=== PATIENT | male | born 1945 | race Caucasian/White ===

== ENCOUNTER 2017-07-22 13:59 | Emergency (ER) | payer OTHER ==
[~2017-07-22] VITALS: Ht 175.3 cm; Wt 81.7 kg
[~2017-07-22 13:59] MED LIST: ACTOS 45 MG45 M1 PO; ASPIR 8181 MG PO; ASPIRIN81 M2 PO; AZITHROMYCIN 2250 MG PO; CENTRUM SILVER1 EAC4 PO; COLACE100 MG PO; COZAAR 50 MG TA50 M2 PO; FISH OIL 1,001000 M2 PO; FLEXERIL PO; GLUCOPHAGE500 MG PO; LEVAQUIN 500 M500 M2 PO; LIPITOR40 MG PO; LISINOPRIL10 MG PO; LOPRESSOR50 PO; NAPROSYN500 MG PO; NEXIUM40 MG PO; NITROGLYCERIN0.4 MG SUBLING; NORCO 10-325 T1 EACH PO; PLAVIX 75 MG TA75 M1 PO; SIMVASTATIN40 MG PO; VENTOLIN HFA 1818 GM INH
[2017-07-22 15:11] VITALS: BP 116/66
== END 2017-07-22 15:12 | disposition home or self-care (01) ==
LOC: M.ERS 13:59
DX: S02.2XXA Fracture of nasal bones, initial encounter for closed fracture (principal); E78.5 Hyperlipidemia, unspecified; I10 Essential (primary) hypertension; E11.9 Type 2 diabetes mellitus without complications; W22.8XXA Striking against or struck by other objects, initial encounter; Y93.89 Activity, other specified; Y92.89 Other specified places as the place of occurrence of the external cause; Y99.8 Other external cause status

== ENCOUNTER → 2018-12-15 | Outpatient (CLI) | payer OTHER ==
--- NOTE | 2018-12-15 19:39 | CARDNUC ---
[place] [address] CARDIAC NUCLEAR IMAGING REPORT Name: BLAISE HERNÁNDEZ Room: [facility]#: [id number] Admission: 12/15/18 Attend Phys: Elkin Hall, Discharge: Date of : 41 Date of Service: 12/15/181938 Report #: [id number] THIS REPORT FOR: //name// APPROVED REPORT Imaging Protocol: Rest Tc-99m/Stress Tc-99m 1 day Study performed: 12/15/2018 09:23:44 Indication: Dyspnea Patient Location: Out-Patient Stress Tech: Nancy Palma Stress Nurse: Lily Mckeon RN NM Tech:RHONDA Guerra Ht: 5 ft 8 in Wt: 175 lbs BSA: 1.93 m2 BMI: 26.60 Medical History Medications: metoprolol, atorvastatin, losartan, clopidogrel, metformin Allergies: NKDA Cardiac Risk Factors: age, HLP, HTN, DM Previous Cardiac Procedures: Diagnostic cath Meds Held (24 hrs): beta todd Resting Data Rest SPECT myocardial perfusion imaging was performed in supine position 30 minutes following the intravenous injection of 11.1 mCi of Tc-99m Sestamibi. Time of rest injection: 0800 Date: 12/15/2018 The images were gated to evaluate regional wall motion and calculate left ventricular ejection fraction. Administration Route: IV Administration Site: Right Arm Pharmacologic Stress Pharmacologic stress test was performed by injecting Regadenoson 0.4 mg IV push over 10-15 seconds immediately followed by the intravenous injection of 33.9 mCi of Tc-99m Sestamibi. Time of stress injection: 919 Date: 12/15/2018 Administration Route: IV Administration Site: Right Arm Gated Stress SPECT was performed 40 minutes after stress injection. The images were gated to evaluate regional wall [place] [address] CARDIAC NUCLEAR IMAGING REPORT Name: BLAISE HERNÁNDEZ Room: [facility] NELI Gonzalez#: [id number] Admission: 12/15/18 Attend Phys: Elkin Hall, Discharge: Date of : 41 Date of Service: 12/15/18 193 Report #: [id number] left ventricular ejection fraction. Prone imaging was performed. Stress Test Details Stress Test: Pharmacologic stress testing performed using 0.4 mg of regadenoson per 5 mL given IV over 10 seconds. HR Max Heart Rate (APMHR): 145 bpm Resting HR: 78 bpm Target HR (85% APMHR): 123 bpm Max HR Achieved: 117 bpm % of APMHR: 80 Recovery HR: 99 bpm BP Resting BP: 158/90 mmHg Max BP: 123/68 mmHg Recovery BP: 123/62 mmHg ECG Resting ECG: Sinus Rhythm Stress ECG: Sinus Tachycardia ST Change: None Arrhythmia: None Recovery ECG: Sinus Rhythm Recovery ST Change: None Recovery Arrhythmia: None Clinical Reason for Termination: Completed protocol Stress Symptoms: none The patient tolerated Lexiscan infusion without significant cardiac symptoms. Stress ECG Conclusion The baseline 12-lead EKG shows sinus rhythm without significant ST or T wave abnormality. EKGs obtained during and post Dari infusion show sinus rhythm and sinus tachycardia with no significant ST or T wave changes when compared to baseline. There were no significant stress-induced arrhythmias. Study Quality Study: Good Artifact: No artifact Study Data At rest, the left ventricular ejection fraction was 69%.. Post stress, the left ventricular ejection was 67%.. [place] [address] CARDIAC NUCLEAR IMAGING REPORT Name: BLAISE HERNÁNDEZ [place] Room: [facility]#: [id number] Admission: 12/15/18 Attend Phys: Elkin Hall, Discharge: Date of : 41 Date of Service: 12/15/18 1939 Report #: [id number] TID = 0.97. Perfusion Perfusion images show a moderate sized mild to moderate intensity reversible defect involving the mid to distal anterior wall. No other significant fixed or reversible defects were identified. Wall Motion Gated images are not technically sufficient to evaluate wall motion. Nuclear Conclusion ECG Findings: negative for ischemia Clinical Findings: negative for ischemia Nuclear Findings: positive for ischemia Exercise Capacity: not assessed Left Ventricular Function: study limited There is evidence of ischemia involving the mid to distal anterior wall on perfusion images. Global LV systolic function appears preserved. This is a high risk study based on anterior wall ischemia. <Conclusion> The baseline 12-lead EKG shows sinus rhythm without significant ST or T wave abnormality. EKGs obtained during and post Dari infusion show sinus rhythm and sinus tachycardia with no significant ST or T wave changes when compared to baseline. There were no significant stress-induced arrhythmias. <ELECTRONICALLY SIGNED> By: Elkin Hall MD, FACC 12/15/181938 38 38 Elkin Hall MD, FACC /INF
== END ==
LOC: M.NUC 11-21 12:19
DX: I25.10 Atherosclerotic heart disease of native coronary artery without angina pectoris (principal); Z79.899 Other long term (current) drug therapy

== ENCOUNTER 2018-12-27 09:01 | Observation (INO) | payer OTHER ==
[~2018-12-27] VITALS: Ht 172.7 cm; Wt 81.7 kg
[2018-12-27] VITALS (10 sets, daily range): BP systolic 91–160; BP diastolic 43–88
[~2018-12-27 09:01] MED LIST changes: +COZAAR 50 MG TA50 M1 PO; -COZAAR 50 MG TA50 M2 PO
[2018-12-27 10:02] LABS: HEMATOCRIT 36.2 % (42.0-52.0); HEMOGLOBIN 12.2 gm/dL (14.0-18.0); MCH 32.5 pg (26.0-34.0); MCHC 33.5 g/dL (28.0-37.0); MCV 96.8 fL (80.0-100.0); MPV 9.4 fl. (7.2-11.1); RBC 3.74 mil/uL (4.50-6.00); RDW-CV 13.5 % (10.5-14.5); WBC 7.1 thou/uL (4.0-11.0)
[2018-12-27 10:12] LABS: ANION GAP 11 mmol/L (7-16); BUN 34 mg/dL (7-18); CALCIUM 9.3 mg/dL (8.5-10.1); CHLORIDE 102 mmol/L (98-107); CO2 26 mmol/L (21-32); CREATININE 1.5 mg/dL (0.6-1.3); GLUCOSE 184 mg/dL (70-99); POTASSIUM 4.3 mmol/L (3.5-5.1); SODIUM 139 mmol/L (136-145)
[2018-12-27 10:13] LABS: PROTIME 10.7 Seconds (9.20-11.50)
[2018-12-27 10:16] LABS: ALKALINE PHOSPHATASE 96 U/L (46-116); CHOLESTEROL 115 mg/dL (<200); HDL CHOLESTEROL 33 mg/dL (>40); LDL CHOLESTEROL 71 mg/dL (<100); SGOT 19 U/L (15-37); SGPT 31 U/L (30-65); TC:HDL 3.5 Ratio (Not establshd); TOTAL BILIRUBIN 0.4 mg/dL (<0.1-1.0); TOTAL PROTEIN 7.8 g/dL (6.4-8.2); TRIGLYCERIDE 55 mg/dL (<150); VLDL 11 mg/dL (<40)
[2018-12-27 10:18] LABS: SERUM ASSESSMENT Clear
--- NOTE | 2018-12-27 15:04 | EKG ---
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: RT : 1945 Requested By: Elkin Hall Order Number: [id number] Yojana MD: Elkin Hall Measurements Intervals [place] Rate: 67 P: 7 VT: 125 QRS: 101 QRSD: 134 T: 34 QT: 380 QTc: 401 Interpretive Statements Sinus rhythm Nonspecific intraventricular conduction delay, atypical right bundle-branch block Compared to ECG 09/30/2015 15:15:02 Sinus tachycardia no longer present Electronically Signed On 12-27-2018 15:04:34 CDT by Elkin Hall [email or web address] <ELECTRONICALLY SIGNED> By: Elkin Hall MD, [facility] 12/27/18 1504 1020 1020 Elkin Hall MD, [facility] /EPI
--- NOTE | 2018-12-27 15:08 | EKG ---
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: : 1945 Requested By: Elkin Hall Order Number: [id number] Yojana MD: Elkin Hall Measurements Intervals [place] Rate: 66 P: 15 DE: 122 QRS: 94 QRSD: 139 T: 27 QT: 400 QTc: 420 Interpretive Statements Sinus rhythm Nonspecific intraventricular conduction delay, atypical right bundle-branch block Compared to ECG 09/30/2015 15:15:02 Sinus tachycardia no longer present Electronically Signed On 12-27-2018 15:07:58 CDT by Elkin Hall [email or web address] <ELECTRONICALLY SIGNED> By: Elkin Hall MD, [facility] 12/27/18 1507 1352 1352 Elkin Hall MD, FAC /EPI
[2018-12-27 16:02] LABS: CK-MB MASS 0.8 ng/mL (<0.5-3.6); TROPONIN-I LEVEL <0.06 ng/mL (<0.06)
--- NOTE | 2018-12-27 17:00 | NUR ---
INVAS TECH ADMIT TO 209 TELEPHONE REPORT GIVEN PRIOR TO ARRIVAL ARRIVED IN BED ORIENTED TO AND CALL LIGHT DENIES PAIN R GROIN SITE C/D/I, NO HEMATOMA
[2018-12-27] MEDS ORDERED: PLAVIX 75 MG TA75 M1 PO (17:29)
[2018-12-28 04:40] VITALS: BP 112/56
--- NOTE | 2018-12-28 06:08 | NUR ---
PATIENT SLEPT MOST OF THE NIGHT. IV FLUIDS WERE GIVEN ORDERED. DRESSING TO RIGHT GROIN CATH SITE REMAINS C/D/I NO BRUISING OR HEMATOMA NOTED. PATIENT IS POSSIBLY GOING HOME TODAY. WILL CONTINUE TO MONITOR.
--- NOTE | 2018-12-28 07:05 | NUR ---
CHANGE OF SHIFT, BEDSIDE REPORT GIVEN' PATIENT SEEN AT BEDSIDE, IN BED ASLEEP ASSUMED PATIENT CARE
[2018-12-28 08:00] VITALS: BP 113/58
[2018-12-28 08:11] LABS: HEMATOCRIT 31.6 % (42.0-52.0); MCH 33.4 pg (26.0-34.0); MCHC 34.7 g/dL (28.0-37.0); MCV 96.1 fL (80.0-100.0); RBC 3.29 mil/uL (4.50-6.00); RDW-CV 13.3 % (10.5-14.5); WBC 6.4 thou/uL (4.0-11.0)
[2018-12-28 08:34] LABS: ALBUMIN 3.3 g/dL (3.4-5.0); ALKALINE PHOSPHATASE 90 U/L (46-116); ANION GAP 11 mmol/L (7-16); BUN 23 mg/dL (7-18); CALCIUM 8.8 mg/dL (8.5-10.1); CHLORIDE 105 mmol/L (98-107); CK-MB MASS 0.6 ng/mL (<0.5-3.6); CO2 22 mmol/L (21-32); CREATININE 1.3 mg/dL (0.6-1.3); GLUCOSE 128 mg/dL (70-99); POTASSIUM 4.3 mmol/L (3.5-5.1); SGOT 17 U/L (15-37); SGPT 29 U/L (30-65); SODIUM 138 mmol/L (136-145); TOTAL BILIRUBIN 0.3 mg/dL (<0.1-1.0); TOTAL PROTEIN 6.4 g/dL (6.4-8.2); TROPONIN-I LEVEL <0.06 ng/mL (<0.06)
[2018-12-28] MEDS ORDERED: ASPIRIN325 PO (09:27)
[2018-12-28] MEDS ORDERED: EFFIENT10 MG PO (09:27)
[2018-12-28] MEDS ORDERED: PHENAZOPYRIDIN100 M1 PO (09:27)
--- NOTE | 2018-12-28 09:34 | CARD ---
[address] [address] CARDIAC CATH REPORT Name: BLAISE HERNÁNDEZ Room: [address] M.RJanelle#: [id number] Admission: 12/27/18 Attend Phys: Elkin Hall MD Discharge: Date of : 41 Report #: [id number] THIS REPORT FOR: //name// APPROVED REPORT Study performed: 12/27/2018 09:46:57 Patient Details Patient Status: In-Patient Room #: The patient is a 73 year-old male Event Personnel Elkin Hall Television Station Manager, Fadia Ingram RN Block Operator, Genoveva Hilton RN Block Operator, August Barrera (R) Scrub, , Anne Munguia Monitor, Cele Bowers RTR Monitor, Andrea Bullock DATA COLLECTION TECHNICIAN Monitor, Antione Kemp Speech Language Pathologist Travel Procedures Performed Art Access - R femoral artery* Left Heart Cath w/or w/o Coronaries [id number] [facility] w/wo Plasty Single LAD [id number] Indication Positive stress test, Chest pain Admission/Lab Medications/Medications given during procedure Lidocaine Subcut 10 ml, Midazolam (Versed) IV 1 mg, Fentanyl IV 25 mcg, Angiomax IV Bolus 12 ml, Angiomax Drip IV 27.82 ml per hr, Aspirin PO 81 mg, Effient PO 60 mg Procedure Narrative A 6fr Ultimum Sheath sheath was inserted into the right femoral artery. Coronary angiography was performed using coronary diagnostic catheters. The right coronary system was accessed and visualized with a 6F JR4 catheter. The left coronary system was accessed and visualized with a 6F JL4 catheter. The left ventricle was accessed and visualized with a 6F Pigtail catheter. Closure device was deployed with a 6 Fr Angioseal STS 6Fr. The patient tolerated the procedure well and there were no complications associated with the procedure. Intraoperative Conscious Sedation Sedation start time: 12:15 Case end Time: 13:132 [place] [address] CARDIAC CATH REPORT Name: EDGARBLAISE BARKSDALE Room: [address] M.R.#: [id number] Admission: 12/27/18 Attend Phys: Elkin Hall MD Discharge: Date of : 41 Report #: [id number] Fentanyl 25 mcg Versed 1 mg Fluoro Time: 15.4 minutes Dose: DAP 960381 cGycm2 3146 mGy Contrast Type and Amount: Visipaque 450 ml Coronary Angiography The patient's coronary anatomy is right dominant. Diagnostic Cath Left Main Normal. The vessel bifurcates into a left anterior descending and circumflex was coronary artery. LAD High-grade calcified eccentric plaque very proximally with 90% narrowing. 20% narrowing in the mid and distal portions. Diagonal 1 Large vessel with very high takeoff. Free of significant disease. Circumflex 10% plaquing proximally. There is a 70% narrowing in the mid vessel after the takeoff of a first obtuse marginal branch. OM1 Normal. OM2 Normal. Right Coronary 50% narrowing with an eccentric lesion in the mid vessel and 50% narrowing with eccentric lesion in the distal vessel. R PDA Normal. RPLV Normal. Left Ventriculography Left Ventriculography was not performed. Hemodynamics The aortic pressure is 120/58 mmHg with a mean of 80 mmHg. The left ventricular pressure is 110/5 mmHg with a mean of mmHg. The left ventricular end diastolic pressure is 13 mmHg. PCI Technique Lesion Anticoagulation was achieved with Angiomax. Patient was preloaded with Angiomax IV 12 ml. Percutaneous coronary intervention was performed on the proximal left anterior descending artery segment. A 6F XB LAD 3.5 Guide Catheter was used to engage the LMCA ostium. A BMW 190cm Interventional Guidewire was used to cross the lesion. BALLOON DILATION A Balloon catheter Trek RX 2.5 X 8 was inserted and inflated up to 14.00atm for 12seconds. Additional Inflation: 18.00atm for 9seconds. [place] [address] CARDIAC CATH REPORT Name: BLAISE HERNÁNDEZ Room: [address] Tr[place] M.R.#: [id number] Admission: 12/27/18 Attend Phys: Elkin Hall MD Discharge: Date of : 41 Report #: [id number] A 2nd Balloon catheter NC Trek 2.75 x 8 was inserted and inflated to 18 layne for 14 seconds. Reinflated to 22 layne, 12 seconds. STENT DEPLOYMENT A drug-eluting stent Xience Patricia 2.75X8mm was inserted and inflated up to 16.00atm for 13seconds. Additional Inflation: 18.00atm for 7seconds. Additional Inflation: 20.00atm for 6seconds. POST STENT DEPLOYMENT BALLOON DILATION A Balloon catheter NC Trek RX 3.0 X 8 was inserted and inflated up to 16.00atm for 9seconds. Additional Inflation: 17.00atm for 7seconds. Conclusion 1. High-grade very proximal left anterior descending narrowing. 2. Moderate mid circumflex and mid and distal right coronary disease. 3. Normal left ventricular end-diastolic pressure. 4. Successful PCI with deployment of a drug eluting stent at the site of 90% proximal LAD stenosis with 10% residual narrowing and KARLEE 3 flow to the distal LAD Recommendations 1. Continue aggressive risk factor modification. 2. Percutaneous coronary intervention to the proximal LAD. Medications Administered Aspirin (any) Prasugrel <ELECTRONICALLY SIGNED> By: Antione Kemp MD, [facility] 12/28/18 0934 0934Antione Kemp MD, [facility] /INF
[2018-12-28 10:00] VITALS: BP 113/58
[2018-12-28 10:58] VITALS: BP 113/58
--- NOTE | 2018-12-28 11:55 | NUR ---
DISCHARGE TO HOME ALL DISCHARGE INSTRUCTIONS GIVEN, ACKNOWLEDGED, SIGNED PAPERWORK GIVEN IV AND HEART MONITOR REMOVED PATIENT ASSISTED TO WAITING CAR VIA GOOD CONDITION
--- NOTE | 2018-12-29 17:55 | EKG ---
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: RT : 1945 Requested By: Elkin Hall Order Number: [id number] Reading MD: Dwayne Quinn Measurements Intervals [place] Rate: 71 P: 0 HI: 111 QRS: 109 QRSD: 133 T: 34 QT: 392 QTc: 426 Interpretive Statements Sinus rhythm Borderline short HI interval Nonspecific intraventricular conduction delay Compared to ECG 12/27/2018 13:52:18 Right bundle-branch block no longer present Electronically Signed On 12-29-2018 17:55:07 CDT by Dwayne Quinn [email or web address] <ELECTRONICALLY SIGNED> By: Hank Quinn MD, [facility] 12/29/18 1755 0808 0808 Hank Quinn MD, [facility] /EPI
--- NOTE | 2019-01-02 09:25 | D ---
[address] [address] DISCHARGE SUMMARY Name: BLAISE HERNÁNDEZ Room: [address] [place] Gonzalez#: [id number] Admission: 12/27/18 Attend Phys: Elkin Hall MD Discharge: 12/28/18 Date of : 41 Report #: [id number] THIS REPORT FOR: //name// CC: Pk Hall DATE OF SERVICE: 12/28/2018 DISCHARGE DIAGNOSES: 1. Unstable angina. 2. Coronary artery disease. 3. Status post percutaneous coronary intervention to the proximal LAD with a drug-eluting stent. 4. Diabetes, type 2. 5. Hypertension. 6. Hyperlipidemia. PROCEDURES DURING THE HOSPITALIZATION: 1. Coronary angiography. 2. Left heart catheterization. 3. Percutaneous coronary intervention to the proximal LAD with a drug-eluting stent placed. HOSPITAL COURSE: The patient was admitted to the hospital with progressive/unstable angina. A stress test suggested anterior wall ischemia. The patient underwent coronary angiography that showed a high-grade proximal LAD stenosis for which she received a single 2.75 x 8 mm drug-eluting stent, postdilated to 3 mm. The patient tolerated the procedure well without complication. The patient was noted to have a 70% mid circumflex and 50% proximal and mid right coronary narrowings. No intervention was done to these areas. The patient tolerated the procedure well without complication. The patient remained stable overnight in the hospital and is being discharged uneventfully. DISCHARGE MEDICATIONS: Will include Effient 10 mg p.o. daily, aspirin 81 mg p.o. daily, Pyridium 200 mg b.i.d. p.r.n., metformin 500 mg 2 tablets p.o. b.i.d., losartan 25 mg daily, [place] 10/325 one to two tablets every 4 hours p.r.n., Nitrostat 0.4 mg sublingual p.r.n., atorvastatin 40 mg nightly and metoprolol tartrate 50 mg b.i.d. DISPOSITION: The patient will follow up with nurse practitioner in 2 weeks and myself in 2 months. <ELECTRONICALLY SIGNED> By: Elkin Hall MD, FACC 01/02/19 0925 0935 1030Micpenny Hall MD, FACC /nt
== END 2018-12-28 11:50 | disposition home or self-care (01) ==
LOC: M.CL 09:01 → M.TBA-CV 13:07 → M.2W 17:02
PROVIDERS: ADMIT Internal Medicine Cardiovascular Disease
DX: I25.110 Atherosclerotic heart disease of native coronary artery with unstable angina pectoris (principal); E11.9 Type 2 diabetes mellitus without complications; I10 Essential (primary) hypertension; E78.5 Hyperlipidemia, unspecified; Z79.899 Other long term (current) drug therapy

== ENCOUNTER → 2019-01-11 | Outpatient (CLI) | payer OTHER ==
[~2019-01-11] MED LIST changes: +ASPIRIN325 PO; +EFFIENT10 MG PO; +PHENAZOPYRIDIN100 M1 PO
== END ==
LOC: M.RAD 11:20
DX: J43.1 Panlobular emphysema (principal); Q79.1 Other congenital malformations of diaphragm

== ENCOUNTER → 2019-01-23 | Outpatient (CLI) | payer OTHER ==
--- NOTE | 2019-01-23 14:36 | 2DMMODE ---
[place] [address] 2 D/M-MODE ECHOCARDIOGRAM Name: BLAISE HERNÁNDEZ Room: [facility]#: [id number] Admission: 01/23/19 Attend Phys: Cindy Matt Discharge: Date of : 41 Date of Service: 01/23/19 1436 Report #: [id number] THIS REPORT FOR: //name// APPROVED REPORT Study performed: 01/23/2019 09:52:15 EXAM: Comprehensive 2D, Doppler, and color-flow Echocardiogram Patient Location: Out-Patient BSA: 1.91 HR: 66 bpm BP: 120/68 mmHg Other Information Study Quality: Technically Limited Technically limited study due to lung. Indications Dyspnea 2D Dimensions IVSd: 10.82 (7-11mm) LVOT Diam: 18.65 (18-24mm) LVDd: 29.71 mm PWd: 9.90 (7-11mm) Ascending Ao: 28.86 (22-36mm) LVDs: 23.07 (25-40mm) Aortic Root: 25.24 mm Volumes Left Atrial Volume (Systole) LA ESV Index: 10.80 mL/m2 Aortic Valve AoV Peak Rick.: 1.09 m/s AO Peak Gr.: 4.73 mmHg LVOT Max P.98 mmHg AO Mean Gr.: 2.32 mmHg LVOT Mean P.77 mmHg LVOT Max V: 1.00 m/s AO V2 VTI: 18.48 cm LVOT Mean V: 0.60 m/s MICH (VTI): 3.01 cm2 LVOT V1 VTI: 20.34 cm Mitral Valve E/A Ratio: 0.67 MV Decel. Time: 269.35 ms MV E Max Rick.: 0.54 m/s MV PHT: 78.11 [place] [address] 2 D/M-MODE ECHOCARDIOGRAM Name: EDGARBLAISE BARKSDALE Room: [facility]#: [id number] Admission: 01/23/19 Attend Phys: Cindy Matt Discharge: Date of : 41 Date of Service: 01/23/19 1436 Report #: [id number] MVA (PHT): 2.82 cm2 TDI E/Lateral E': 9.00 E/Medial E': 6.00 Medial E' Rick.: 0.09 m/s Lateral E' Rick.: 0.06 m/s Pulmonary Valve PV Peak Rick.: 0.75 m/s PV Peak Gr.: 2.22 mmHg Tricuspid Valve RAP Estimate: 5.00 mmHg TR Peak Gr.: 18.51 mmHg RVSP: 23.51 mmHg PA Pressure: 23.51 mmHg Left Ventricle The left ventricle is normal size. inferobasilar hypokinesis is suggested. There is normal left ventricular wall thickness. Left ventricular systolic function is normal. The left ventricular ejection fraction is within the normal range. LVEF is 55-60%. Grade I - abnormal relaxation pattern. Right Ventricle The right ventricle is normal size. The right ventricular systolic function is normal. Atria The left atrium size is normal. The right atrium size is normal. Aortic Valve The aortic valve is normal in structure. No aortic regurgitation is present. There is no aortic valvular stenosis. Mitral Valve The mitral valve is normal in structure. Mild mitral regurgitation. No evidence of mitral valve stenosis. Tricuspid Valve The tricuspid valve is normal in structure. Mild tricuspid regurgitation. Pulmonic Valve The pulmonary valve is normal in structure. There is no pulmonic [place] [address] 2 D/M-MODE ECHOCARDIOGRAM Name: BLAISE HERNÁNDEZ Room: [facility]#: [id number] Admission: 01/23/19 Attend Phys: Cindy Matt Discharge: Date of : 41 Date of Service: 01/23/19 1436 Report #: [id number] Great Vessels The aortic root is normal in size. IVC is normal in size and collapses >50% with inspiration. Pericardium There is no pericardial effusion. <Conclusion> The left ventricle is normal size. There is normal left ventricular wall thickness. Left ventricular systolic function is normal. The left ventricular ejection fraction is within the normal range. LVEF is 55-60%. Grade I - abnormal relaxation pattern. The right ventricle is normal size. The left atrium size is normal. The aortic valve is normal in structure. The mitral valve is normal in structure. The tricuspid valve is normal in structure. IVC is normal in size and collapses >50% with inspiration. There is no pericardial effusion. inferobasilar hypokinesis is suggested. <ELECTRONICALLY SIGNED> By: Antione Kemp MD, FACC 01/23/19 1436 1436 1436 Antione Kemp MD, FACC /INF
--- NOTE | 2019-01-27 16:09 | SLEEP ---
[address] [address] SLEEP STUDY REPORT Name: BLAISE HERNÁNDEZ Room: [facility]#: [id number] Admission: 01/23/19 Attend Phys: Cindy Matt Discharge: Date of : 41 Report #: [id number] THIS REPORT FOR: //name// CC: Pk Hall This study has been reviewed in its entirety by a board certified sleep specialist DATE OF SERVICE: 01/23/2019 REFERRING PHYSICIAN: Cindy Matt NP The patient is 69-year-old who weighs 170 pounds with a BMI of 24.4. The patient's Cadwell score was 3. The patient underwent home sleep study performed by [facility]. Total recording time was 493 minutes. During the night study, the patient had 2 central apneas, 73 obstructive apneas, no mixed apneas and 37 hypopneas. The patient's apnea hypopnea index was 13.6 per hour. Supine index of 14 per hour. Nocturnal oximetry study revealed an average oxygen saturation of 93%, lowest of 87%. Only 1.6 minutes were spent in oxygen saturation of less than 90%. Mean heart rate was 70 beats per minute with a maximum of 98 beats per minute. IMPRESSION: 1. Mild sleep apnea-hypopnea syndrome at an AHI of 13.6 per hour. 2. No clinically significant nocturnal hypoxia. RECOMMENDATIONS: 1. The patient has mild sleep apnea. If the patient is clinically symptomatic or has comorbid conditions, then consider treatment of sleep apnea with either oral appliance or a trial of CPAP. 2. Avoid BIOLOGICAL TECHNICIAN depressants. 3. Cautioned regarding driving until symptoms of sleep apnea resolves with the above recommendations. <ELECTRONICALLY SIGNED> By: Dane Hanson MD 01/27/19 1609 1243 1335Aman Arabella Hanson MD /nt
== END ==
LOC: M.CRD 09:00
DX: I08.1 Rheumatic disorders of both mitral and tricuspid valves (principal); G47.30 Sleep apnea, unspecified; G47.33 Obstructive sleep apnea (adult) (pediatric)

== ENCOUNTER → 2020-02-13 | Outpatient (CLI) | payer MEDICARE ==
--- NOTE | 2020-02-22 14:29 | CARDNUC ---
[facility] [address] [place] [address] CARDIAC NUCLEAR IMAGING REPORT Name: BLAISE HERNÁNDEZ Room: [facility]#: [id number] Admission: 02/13/20 Attend Phys: Elkin Hall, Discharge: Date of : 41 Date of Service: 02/22/20 1429 Report #: [id number] THIS REPORT FOR: cc: Pk Ferrer MD, David L. MD Liston, Michael J. MD [facility] ~ APPROVED REPORT Imaging Protocol: Other - Rest Only Study performed: 02/13/2020 12:45:00 NM Tech:RHONDA Guerra BMI: 0 Resting Data Rest SPECT myocardial perfusion imaging was performed in supine position 30 minutes following the intravenous injection of 10.4 mCi of Tc-99m Sestamibi. Time of rest injection: 1315 Date: 02/13/2020 The images were gated to evaluate regional wall motion and calculate left ventricular ejection fraction. Administration Route: IV Stress Test Details BP ECG Study Quality Study: Fair Artifact: No artifact Study Data At rest, the left ventricular ejection fraction was 63%.. Perfusion Perfusion images at rest showed generally uniform uptake of the radioisotope throughout the myocardium. Stress images were not obtained. [place] [address] CARDIAC NUCLEAR IMAGING REPORT Name: BLAISE HERNÁNDEZ Room: [facility]#: [id number] Admission: 02/13/20 Attend Phys: Elkin Hall, Discharge: Date of : 41 Date of Service: 02/22/201428 Report #: [id number] Resting gated images show relatively normal wall motion. Nuclear Conclusion Only resting images were acquired. Gated studies show relatively normal LV systolic function. Resting perfusion images were unremarkable. <ELECTRONICALLY SIGNED> By: Elkin Hall MD, FACC 02/22/201428 28 28 Elkin Hall MD, FACC /INF
== END ==
LOC: M.NUC 02-02 08:47
PROVIDERS: ATTEND Internal Medicine Cardiovascular Disease
DX: I25.10 Atherosclerotic heart disease of native coronary artery without angina pectoris (principal)

== ENCOUNTER → 2020-02-16 | Outpatient (CLI) | payer MEDICARE ==
[2020-02-16 13:09] LABS: DIRECT BILIRUBIN 0.2 mg/dL (<0.1-0.3); TOTAL BILIRUBIN 0.5 mg/dL (<0.1-1.0); TOTAL PROTEIN 7.7 g/dL (6.4-8.2)
== END ==
LOC: M.LAB 11:52
PROVIDERS: ATTEND Internal Medicine Cardiovascular Disease
DX: J98.11 Atelectasis (principal); Z79.899 Other long term (current) drug therapy

== ENCOUNTER → 2020-02-28 | Outpatient (CLI) | payer MEDICARE ==
[2020-02-28 12:51] LABS: ABSOLUTE EOSINOPHILS 0.1 thou/uL (0.0-0.7); ABSOLUTE LYMPHOCYTES 1.8 thou/uL (0.8-5.3); ABSOLUTE MONOCYTES 0.6 thou/uL (0.0-1.2); ABSOLUTE NEUTROPHILS 5.2 thou/uL (1.6-8.1); BASOPHILS 0.4 %; EOSINOPHILS 1.8 %; HEMATOCRIT 34.9 % (42.0-52.0); HEMOGLOBIN 11.8 gm/dL (14.0-18.0); LYMPHOCYTES 22.8 %; MCH 33.8 pg (26.0-34.0); MCHC 33.9 g/dL (28.0-37.0); MCV 99.7 fL (80.0-100.0); MONOCYTES 7.2 %; MPV 8.5 fl. (7.2-11.1); NUCLEATED RBCS 0 /100WBC; PLATELET COUNT* 211 thou/uL (150-400); POLYS 67.8 %; RDW-CV 13.4 % (10.5-14.5); WBC 7.7 thou/uL (4.0-11.0)
[2020-02-29 02:06] LABS: GLYCOHEMOGLOBIN (HGB A1C) 6.7 % (4.8-5.6)
== END ==
LOC: M.LAB 12:36
PROVIDERS: ATTEND Nurse Practitioner
DX: I48.91 Unspecified atrial fibrillation (principal); E11.9 Type 2 diabetes mellitus without complications

== ENCOUNTER → 2020-03-19 | Outpatient (CLI) | payer MEDICARE ==
--- NOTE | 2020-03-19 14:41 | CARDNUC ---
[place] [address] CARDIAC NUCLEAR IMAGING REPORT Name: BLAISE HERNÁNDEZ Room: [facility]#: [id number] Admission: 03/19/20 Attend Phys: Elkin Hall, Discharge: Date of : 41 Date of Service: 03/19/20 1441 Report #: [id number] THIS REPORT FOR: cc: Lyla Kong MD, Lin W. MD Liston, Michael J. MD [facility] ~ APPROVED REPORT Imaging Protocol: Stress Tc-99m/Rest Tc-99m 1 day Study performed: 03/19/2020 10:10:55 Indication: Dyspnea, Fatigue, AFib with RVR. Patient Location: Out-Patient Stress Tech: Mira Lee Stress Nurse: Rubina Mcwilliams RN Ht: 5 ft 8 in Wt: 168 lbs BSA: 1.90 m2 BMI: 25.54 Medical History Medical History: Atrial Fibrillation, CAD s/p stent, Dyspnea, Fatigue, Amiodarone therapy, Paralyzed left hemidiaphragm, Restrictive Lung Disease, DM II with Insulin, Mild Mitral and tricuspid regurgitation, HTN, Hyperlipidemia, Former smoker, Generalized weakness, unstable gait. Medications: Amiodarone, Eliquis, Atorvastatin, Losartan, Metoprolol, NTG, Effient. Allergies: No known drug allergies Cardiac Risk Factors: Age, Diabetes (insulin), FHX of CAD, HTN, Hyperlipidemia, SOB, Past Smoker, HX Afib with RVR, mild mitral / tricuspid regurgitation. Previous Cardiac Procedures: PCI Pretest Chest Pain Characteristics: No chest pain Exercise History: Sedentary Physical Disabilities: Fatigue, weakness, HX AFib, unstable gait. Meds Held (24 hrs): NTG. Resting Data Rest SPECT myocardial perfusion imaging was performed in supine position 30 minutes following the intravenous injection of 10.3 mCi of Tc-99m Sestamibi. Time of rest injection: 08:30 The images were gated to evaluate regional [place] [address] CARDIAC NUCLEAR IMAGING REPORT Name: ARDHA HERNÁNDEZBuster Chavez Room: [facility]#: [id number] Admission: 03/19/20 Attend Phys: Elkin Hall, Discharge: Date of : 41 Date of Service: 03/19/20 1441 Report #: [id number] left ventricular ejection fraction. Administration Route: IV Administration Site: Right Hand Pharmacologic Stress Pharmacologic stress test was performed by injecting Regadenoson 0.4 mg IV push over 10-15 seconds immediately followed by the intravenous injection of 31.7 mCi of Tc-99m Sestamibi. Time of stress injection: 10:00 Administration Route: IV Administration Site: Right Hand Heart Rate at time of stress injection: 83 bpm. Gated Stress SPECT was performed 40 minutes after stress injection. The images were gated to evaluate regional wall motion and calculate left ventricular ejection fraction. Prone imaging was performed. Stress Test Details Stress Test: Pharmacologic stress testing performed using 0.4 mg of regadenoson per 5 mL given IV over 10 seconds. Reason for pharmacologic stress test: Fatigue, weakness, HX AFib, unstable gait.. HR Max Heart Rate (APMHR): 143 bpm Resting HR: 55 bpm Target HR (85% APMHR): 121 bpm Max HR Achieved: 83 bpm % of APMHR: 58 Recovery HR: 66 bpm BP Resting BP: 146/104 mmHg Max BP: 106/59 mmHg Recovery BP: 124/64 mmHg ECG Resting ECG: Sinus Rhythm Stress ECG: Sinus Rhythm ST Change: None Arrhythmia: None Recovery ECG: Sinus Rhythm Recovery ST Change: None Recovery Arrhythmia: None Clinical Reason for Termination: Completed protocol Stress Symptoms: [place] [address] CARDIAC NUCLEAR IMAGING REPORT Name: BLAISE A Room: [facility]#: [id number] Admission: 03/19/20 Attend Phys: Elkin Hall, Discharge: Date of : 41 Date of Service: 03/19/20 1441 Report #: [id number] Exercise duration: 00 min 00 sec Exercise capacity: 1.00 METs The patient tolerated Lexiscan infusion without significant cardiac symptoms. Nurse Comments A 75 year old male presented for a sitting Lexiscan r/t AFib, Dyspnea, increased fatigue/weakness.Test well tolerated. Recovery unremarkable. Patient was stable and stated he felt good when escorted to Nuclear Medicine for imaging. Stress ECG Conclusion Baseline twelve-lead EKG shows sinus rhythm without significant ST segment or T wave abnormality. EKGs obtained during and post Lexiscan infusion show sinus rhythm with no significant ST segment or T wave changes when compared to baseline. There were no stress-induced arrhythmias. Study Quality Study: Good Artifact: Mild Diaphragmatic artifact Study Data At rest, the left ventricular ejection fraction was 64%.. Post stress, the left ventricular ejection was 69%.. TID = 0.90. Perfusion Perfusion images obtained in the supine position show extracardiac uptake in the region of the inferior wall consistent with diaphragmatic attenuation. There is a focal defect of mild intensity at the apex that appears fixed. No other significant fixed or reversible defects are identified. Wall Motion Global LV systolic function is preserved. Gated images appear somewhat technically limited. Review of the raw data shows normal LV function. Nuclear Conclusion ECG Findings: negative for ischemia Clinical Findings: negative for ischemia Nuclear Findings: negative for ischemia Exercise Capacity: not assessed Left Ventricular Function: Preserved Risk Study: [place] [address] CARDIAC NUCLEAR IMAGING REPORT Name: BLAISE A Room: [facility]#: [id number] Admission: 03/19/20 Attend Phys: Elkin Hall, Discharge: Date of : 41 Date of Service: 03/19/20 1441 Report #: [id number] Perfusion images show no defect to suggest ischemia. There is a focal fixed defect of the apex that could possibly represent an focal area of infarct although wall motion in this region is normal. Global LV systolic function is preserved. This is a low risk study. <Conclusion> Baseline twelve-lead EKG shows sinus rhythm without significant ST segment or T wave abnormality. EKGs obtained during and post Lexiscan infusion show sinus rhythm with no significant ST segment or T wave changes when compared to baseline. There were no stress-induced arrhythmias. <ELECTRONICALLY SIGNED> By: Elkin Hall MD, FACC 03/19/20 144 144 144 Elkin Hall MD, FACC /INF
== END ==
LOC: M.NUC 02-29 07:32
PROVIDERS: ATTEND Internal Medicine Cardiovascular Disease
DX: I25.10 Atherosclerotic heart disease of native coronary artery without angina pectoris (principal)

== ENCOUNTER → 2020-09-04 | Outpatient (CLI) | payer OTHER ==
[2020-09-04 11:02] LABS: ALBUMIN 3.8 g/dL (3.4-5.0); DIRECT BILIRUBIN 0.1 mg/dL (<0.1-0.3); TOTAL BILIRUBIN 0.3 mg/dL (<0.1-1.0); TOTAL PROTEIN 7.4 g/dL (6.4-8.2)
== END ==
LOC: M.LAB 10:28
PROVIDERS: ATTEND Internal Medicine Cardiovascular Disease
DX: J98.4 Other disorders of lung (principal); Z79.899 Other long term (current) drug therapy

== ENCOUNTER → 2020-09-06 | Outpatient (CLI) | payer OTHER | LOC: M.RAD 09:24 | PROVIDERS: ATTEND Internal Medicine | DX: S99.0 Physeal fracture of calcaneus (principal); X58.XXXA Exposure to other specified factors, initial encounter; Y93.89 Activity, other specified; Y92.89 Other specified places as the place of occurrence of the external cause; Y99.8 Other external cause status ==

== ENCOUNTER → 2020-09-17 | Outpatient (CLI) | payer OTHER | LOC: M.RAD 09:51 | PROVIDERS: ATTEND Internal Medicine | DX: M81.0 Age-related osteoporosis without current pathological fracture (principal); M19.90 Unspecified osteoarthritis, unspecified site; M85.88 Other specified disorders of bone density and structure, other site ==

== ENCOUNTER → 2020-10-22 | Outpatient (CLI) | payer OTHER ==
--- NOTE | 2020-10-22 12:47 | 2DMMODE ---
[place] [address] 2 D/M-MODE ECHOCARDIOGRAM Name: BLAISE HERNÁNDEZ Room: [facility]#: [id number] Admission: 10/22/20 Attend Phys: Esme Scott, Discharge: Date of : 41 Date of Service: 10/22/20 1247 Report #: [id number] THIS REPORT FOR: cc: Lyla Kong MD, Lin W. MD Liston, Michael J. MD [facility] ~ APPROVED REPORT Study performed: 10/22/2020 09:48:48 EXAM: Comprehensive 2D, Doppler, and color-flow Echocardiogram Patient Location: Out-Patient BSA: 1.94 HR: 54 bpm BP: 120/70 mmHg Other Information Study Quality: Fair Technically limited study due to Paralyzed Diaphragm. Indications Atrial Fibrillation Dyspnea 2D Dimensions IVSd: 8.12 (7-11mm) LVOT Diam: 20.63 (18-24mm) LVDd: 39.53 mm PWd: 8.96 (7-11mm) Ascending Ao: 32.83 (22-36mm) LVDs: 18.85 (25-40mm) Aortic Root: 22.83 mm Volumes Left Atrial Volume (Systole) LA ESV Index: 25.70 mL/m2 Aortic Valve AoV Peak Rick.: 1.25 m/s AO Peak Gr.: 6.22 mmHg LVOT Max P.72 mmHg AO Mean Gr.: 3.03 mmHg LVOT Mean P.92 mmHg LVOT Max V: 0.66 m/s AO V2 VTI: 22.77 cm LVOT Mean V: 0.45 m/s MICH (VTI): 2.41 cm2 LVOT V1 VTI: 16.42 [place] [address] 2 D/M-MODE ECHOCARDIOGRAM Name: BLAISE Scott Room: [facility]#: [id number] Admission: 10/22/20 Attend Phys: Esme Scott, Discharge: Date of : 41 Date of Service: 10/22/20 1247 Report #: [id number] Mitral Valve E/A Ratio: 0.97 MV Decel. Time: 294.22 ms MV E Max Rick.: 0.77 m/s MV PHT: 85.32 ms MVA (PHT): 2.58 cm2 TDI E/Lateral E': 12.83 E/Medial E': 7.70 Medial E' Rick.: 0.10 m/s Lateral E' Rick.: 0.06 m/s Pulmonary Valve PV Peak Rick.: 0.89 m/s PV Peak Gr.: 3.16 mmHg Tricuspid Valve RAP Estimate: 5.00 mmHg TR Peak Gr.: 29.05 mmHg RVSP: 34.05 mmHg PA Pressure: 34.05 mmHg Left Ventricle The left ventricle is normal size. There is left ventricular systolic dyssynergy consistent with underlying bundle branch block. Global LV systolic function is normal. There is normal left ventricular wall thickness. Left ventricular systolic function is normal. LVEF is 60-65%. Grade I - abnormal relaxation pattern. Right Ventricle The right ventricle is normal size. The right ventricular systolic function is normal. Atria The left atrium size is normal. The right atrium size is normal. Aortic Valve The aortic valve is normal in structure. No aortic regurgitation is present. There is no aortic valvular stenosis. Mitral Valve The mitral valve is normal in structure. There is no mitral valve regurgitation noted. No evidence of mitral valve stenosis. Tricuspid Valve The tricuspid valve is normal in structure[place] [address] 2 D/M-MODE ECHOCARDIOGRAM Name: BLAISE A Room: [facility]#: [id number] Admission: 10/22/20 Attend Phys: Esme Scott, Discharge: Date of : 41 Date of Service: 10/22/20 1247 Report #: [id number] regurgitation. The RVSP is 30-35 mmHg. Pulmonic Valve The pulmonary valve is normal in structure. There is no pulmonic valvular regurgitation. Great Vessels The aortic root is normal in size. IVC is normal in size and collapses >50% with inspiration. Pericardium There is no pericardial effusion. <Conclusion> The left ventricle is normal size. There is normal left ventricular wall thickness. Left ventricular systolic function is normal. LVEF is 60-65%. Grade I - abnormal relaxation pattern. There is left ventricular systolic dyssynergy consistent with underlying bundle branch block. Global LV systolic function is normal. Mild tricuspid regurgitation. The RVSP is 30-35 mmHg. IVC is normal in size and collapses >50% with inspiration. <ELECTRONICALLY SIGNED> By: Elkin Hall MD, FACC 10/22/20 1247 1247 1247 Elkin Hall MD, FACC /INF
== END ==
LOC: M.CRD 10:00
PROVIDERS: ATTEND Nurse Practitioner
DX: I07.1 Rheumatic tricuspid insufficiency (principal); I48.0 Paroxysmal atrial fibrillation; R06.02 Shortness of breath

== ENCOUNTER → 2020-11-15 | Outpatient (CLI) | payer OTHER | LOC: M.ULTRA 09:50 | PROVIDERS: ATTEND Internal Medicine Nephrology | DX: N18.4 Chronic kidney disease, stage 4 (severe) (principal) ==